=== PATIENT | female | born 1975 | race Caucasian/White ===

== ENCOUNTER 2022-01-16 15:45 | Emergency (ER) | payer OTHER ==
[2022-01-16] MEDS ORDERED: Sodium Chloride 0.9% 10 ML Syringe FLUSH PRN (16:04)
[2022-01-16] MEDS ORDERED: Morphine 4 MG/ML Syringe IVPUSH ONE (16:11)
[2022-01-16] MEDS ORDERED: Ondansetron 4 MG/2 ML SDV IVPUSH ONE (16:11)
[2022-01-16] MEDS ORDERED: Sodium Chloride 0.9% 1,000 ML IV SCH (16:15)
[2022-01-16 16:35] LABS: PTT,PARTIAL THROMBOPLSTIN TIME 28.6 SEC (20.5-30.9)
[2022-01-16 16:39] LABS: CHLORIDE,CL 102 mmol/L (98-107); SODIUM,NA 138 mmol/L (136-145)
[2022-01-16 16:40] LABS: ANION GAP 13.3 mmol/L (5-15); ESTIMATED GFR 91 mL/min (>=60)
[2022-01-16] MEDS ORDERED: Iopamidol 612 MG/ML 100 ML Bottle IVPUSH ONE (18:08)
[2022-01-16] MEDS ORDERED: Take Home: Ondansetron 4 MG Tab.DIS, 5 Tab Pack PO ONE (19:28)
[2022-01-16] MEDS ORDERED: Take Home: Acetaminophen/HYDROcodone 325-5 MG, 5 Tab Pack PO ONE (19:28)
== END 2022-01-16 19:56 | disposition home or self-care (01) ==
LOC: VM.ED 15:45
DX: R10.13 Epigastric pain (principal); R10.33 Periumbilical pain; E66.9 Obesity, unspecified; Z68.39 Body mass index [BMI] 39.0-39.9, adult; Z79.899 Other long term (current) drug therapy
CPT/HCPCS: 36415; 80053; 81001; 81025; 83735; 85025; 85610; 85730; 86140; 96361; 96374; 96375; 99284; 99284-25; A9270-GY; J2270; J2405; J7030; Q0162; Q9967